=== PATIENT | male | born 1985 | race Caucasian/White ===

== ENCOUNTER 2016-10-25 23:09 | Emergency (ER) | payer OTHER ==
--- NOTE | 2016-10-25 23:15 | EDPHY ---
H & P HPI/ROS: HPI CHIEF COMPLAINT: Alcohol Intoxication HISTORY OF PRESENT ILLNESS: This patient 31-year-old male, presents to the emergency room by EMS highly intoxicated with alcohol. Please found him walking down the street, the make contact with him he appeared very intoxicated , EMS arrived and evaluated placed in a cervical collar as he has hematoma to his right forehead. Patient is unsure exactly what happened. Upon arrival here he is unable to give any history and is not able to participate well in history or review of systems. He is slurring his speech smells of alcohol highly intoxicated. He does tell me he drank multiple beers tonight. Past Medical History: Unknown Past Surgical History: Unknown Social History: Drinks alcohol, otherwise unknown at this time Family History: Unknown ROS REVIEW OF SYSTEMS: Limited due to alcohol intoxication Exam Constitutional Intoxicated, triage nursing summary reviewed, vital signs reviewed, Sleepy, smells of alcohol Eyes normal conjunctivae and sclera, horizontal beating nystagmus consistent acute alcohol intoxication, otherwise pupils equal and react to light HENT head/neck: right forehead hematoma, in rigid cervical collar, no midline cervical spine pain, no step-offs, moist mucus membranes, no epistaxis, neck supple/ no meningismus, no raccoon eyes. Respiratory clear to auscultation bilaterally, normal breath sounds, no respiratory distress, no wheezing. Cardiovascular rate normal, regular rhythm, no murmur, no edema, distal pulses normal. Gastrointestinal soft, non-tender, no rebound, no guarding, normal bowel sounds, no distension, no pulsatile mass. Genitourinary no CVA tenderness. Musculoskeletal no midline vertebral tenderness, full range of motion, no calf swelling, no tenderness of extremities, no meningismus, good pulses, neurovascularly intact. Skin pink, warm, & dry, no rash, skin atraumatic. Neurologic sleepy, intoxicated with alcohol, alert and oriented x 3, AAOx3, moves all 4 extremities equally, motor intact, sensory intact, CN II-XII intact , , normal vision, normal speech. Psychiatric intoxicated with alcohol Heme/Lymph/Immune no lymphadenopathy. Differential Diagnosis: Includes but is not limited to in a particular order acute alcohol intoxication, alcohol abuse, dehydration, electrolyte abnormality , nausea vomiting from acute alcohol intoxication Medical Decision Making: this patient is highly intoxicated with alcohol plan for him will have a breath alcohol, he will need a CT scan of his head and neck due to trauma and being highly intoxicated alcohol. Does have forehead hematoma indicating that he had head strike prior to arrival unclear exactly what happened to him. History is limited due to patient's intoxication. Re-evaluation: CT scan of the head without IV contrast. The results of the study are negative for acute traumatic injury. The study was read by Dr. Marc I viewed the images myself on the PACS system. CT scan of the cervical spine without IV contrast The results of the study are negative for acute traumatic injury The study was read by Dr. Marc. I viewed the images myself on the PACS system.. 1230AM: Patient is medically cleared at this time. Patient is on a [facility] hold. Patient ambulated well with a steady gait will go with police to [facility]. Was able to clear his cervical collar is he has no midline cervical spine pain, and a negative CT scan cervical spine. Negative CT scan head. Patient is acting much more appropriate. Stable gait safe for discharge to the [facility]. Source: Patient, EMS Exam Limitations: Intoxication - Personal History Tetanus Vaccine Date: 2008 - Medical/Surgical History Hx Asthma: No Hx Chronic Respiratory Disease: No Hx Diabetes: No Hx Cardiac Disease: No Hx Renal Disease: Yes Hx Cirrhosis: No Hx Alcoholism: No Hx HIV/AIDS: No Hx Splenectomy or Spleen Trauma: No Other PMH: bipolar-no meds, kidney stones. - Social History Smoking Status: Never smoked Constitutional: Initial Vital Signs Temperature (C) 36.9 C 10/25/16 23:32 Heart Rate 102 H 10/25/16 23:32 Respiratory Rate 18 10/25/16 23:32 Blood Pressure 160/85 H 10/25/16 23:32 O2 Sat (%) 95 10/25/16 23:32 O2 Delivery Mode Nasal Cannula O2 (L/minute) 2 Allergies/Adverse Reactions: No Known Allergies Allergy (Verified 11/10/15 20:01) Home Medications: Medication Instructions Recorded NK [No Known Home Meds] 11/10/15 Departure - Departure Disposition: Home, Routine, Self-Care Clinical Impression: Alcohol intoxication Qualifiers: Complication of substance-induced condition: uncomplicated Qualified Code(s): F10.120 - Alcohol abuse with intoxication, uncomplicated Condition: Good Instructions: Alcohol Intoxication (ED), Hematoma (ED), Contusion in Adults (ED ) Referrals: Patient,NotPresent [Unknown] - As per Instructions
[2016-10-25 23:34] VITALS: RESP 18; TEMP 98.4
[2016-10-26 00:40] VITALS: BP 145/73; PULSE 87; O2SAT 93
== END 2016-10-26 00:40 | disposition home or self-care (01) ==
LOC: EDUNIT#
DX: F10.120 Alcohol abuse with intoxication, uncomplicated (principal)

== ENCOUNTER 2017-01-19 17:40 | Emergency (ER) | payer OTHER ==
[2017-01-19 17:55] VITALS: RESP 16; TEMP 97.9
--- NOTE | 2017-01-19 18:15 | EDPHY ---
H & P Stated Complaint: L elbow redness x 2 wks-at area insect bites in [facility] Time Seen by Provider: 01/19/17 17:58 HPI/ROS: CHIEF COMPLAINT: Left elbow pain HISTORY OF PRESENT ILLNESS: And swelling patient is a 31-year-old man who comes to the emergency department complaining of 2 weeks left elbow swelling, mild erythema and pain. Normal range of motion. He states that he 1st noticed it when he was in [facility] surfing. He is not sure if he was bitten by an insect or not. He has not had a fever. No vomiting. No diarrhea. No paresthesias or weakness. REVIEW OF SYSTEMS: Constitutional: denies: chills, fever, recent illness, recent injury EENTM: denies: blurred vision, double vision, nose congestion Respiratory: denies: cough, shortness of breath Cardiac: denies: chest pain, irregular heart rate, lightheadedness, palpitations Gastrointestinal/Abdominal: denies: abdominal pain, diarrhea, nausea, vomiting, blood streaked stools Genitourinary: denies: dysuria, frequency, hematuria, pain Musculoskeletal: See HPI Skin: denies: lesions, rash, jaundice, bruising Neurological: denies: headache, numbness, paresthesia, tingling, dizziness, weakness Hematologic/Lymphatic: denies: blood clots, easy bleeding, easy bruising Immunologic/allergic: denies: HIV/AIDS, transplant EXAM: GENERAL: Well-appearing, well-nourished and in no acute distress. HEAD: Atraumatic, normocephalic. EYES: Pupils equal round and reactive to light, extraocular movements intact, sclera anicteric, conjunctiva are normal. ENT: TMs normal, nares patent, oropharynx clear without exudates. Moist mucous membranes. NECK: Normal range of motion, supple without lymphadenopathy or JVD. LUNGS: Breath sounds clear to auscultation bilaterally and equal. No wheezes rales or rhonchi. HEART: Regular rate and rhythm without murmurs, rubs or gallops. ABDOMEN: Soft, nontender, normoactive bowel sounds. No guarding, no rebound. No masses appreciated. BACK: No CVA tenderness, no spinal tenderness, step-offs or deformities EXTREMITIES: Left elbow with firm the low over the the epicondyle. NEUROLOGICAL: Cranial nerves II through XII grossly intact. Normal speech, normal gait. 5/5 strength, normal movement in all extremities, normal sensation PSYCH: Normal mood, normal affect. SKIN: Warm, dry, normal turgor, no visible rashes or lesions. Source: Patient Exam Limitations: No limitations - Personal History Current Tetanus/Diphtheria Vaccine: Unsure Current Tetanus Diphtheria and Acellular Pertussis (TDAP): Unsure Tetanus Vaccine Date: 2008 - Medical/Surgical History Hx Asthma: No Hx Chronic Respiratory Disease: No Hx Diabetes: No Hx Cardiac Disease: No Hx Renal Disease: No Hx Cirrhosis: No Hx Alcoholism: No Hx HIV/AIDS: No Hx Splenectomy or Spleen Trauma: No Other PMH: bipolar-no meds, kidney stones. - Family History Significant Family History: No pertinent family hx - Social History Smoking Status: Never smoked Alcohol Use: Sober Drug Use: None Constitutional: Initial Vital Signs Temperature (C) 36.6 C 01/19/17 17:51 Heart Rate 79 01/19/17 17:51 Respiratory Rate 16 01/19/17 17:51 Blood Pressure 148/95 H 01/19/17 17:51 O2 Sat (%) 95 01/19/17 17:51 O2 Delivery Mode Room Air Allergies/Adverse Reactions: azithromycin Allergy (Verified 01/19/17 17:51) Home Medications: Medication Instructions Recorded Sulfamethox/Tmp 800/160 mg 1 tab PO BID #14 tab 01/19/17 [Bactrim Ds] Medical Decision Making - Diagnostics Imaging Results: Imaging Impressions Elbow X-Ray 01/19/17 18:13 Impression: 1. Olecranon bursitis versus subcutaneous hematoma/swelling. 2. No acute fracture or effusion. Procedures: Left elbow bursa drained under sterile conditions, 1 cc of clear straw-colored fluid obtained. ED Course/Re-evaluation: The patient does not appear to have cellulitis. He appears to have a bursitis however it is very firm. X-ray is normal. Only a small amount was drained on bursa drainage. I will send for cultures. I will start him on Bactrim because of the mild erythema. He is traveling to [place] in a couple of weeks. Differential Diagnosis: Partial list of the Differential diagnosis considered include but were not limited to; bursitis, cellulitis and although unlikely based on the history and physical exam, I also considered septic joint , gout, arthritis. I discussed these differential diagnoses and the plan with the patient as well as the usual and expected course. The patient understands that the diagnosis is provisional and that in medicine we are not always correct and that further workup is often warranted. Usual and customary warnings were given. All of the patient's questions were answered. The patient was instructed to return to the emergency department should the symptoms at all worsen or return, otherwise to followup with the physician as we discussed. - Data Points Laboratory Results: 01/19/17 19:32 Fl Pathologist Review Pending Synovial Source SYNOVIAL Synovial Color RED (CLS/PALE YL) Synovial Appearance CLOUDY H (CLEAR) Synovial WBC 2259 /mm3 H /mm3 (0-150) Synovial RBC 750528 /mm3 H /mm3 (0-0) Synovial Neutrophils 80 % H % (0-25) Synovial Lymphocytes 7 % % Synov Monos/Macrophage 13 % % Medications Given: Discontinued Medications Trimethoprim/Sulfamethoxazole (Bactrim Ds) 1 ea PO EDNOW ONE PRN Reason: Protocol Stop: 01/19/17 19:34 Last Admin: 01/19/17 19:41 Dose: 1 ea Departure - Departure Disposition: Home, Routine, Self-Care Clinical Impression: Bursitis Qualifiers: Bursitis location: elbow Elbow bursitis location: olecranon bursitis Laterality : left Qualified Code(s): M70.22 - Olecranon bursitis, left elbow Condition: Fair Instructions: Elbow Bursitis (ED) Referrals: Sabrina Tamayo, [employer] [Primary Care Provider] - As per Instructions Prescriptions: Sulfamethox/Tmp 800/160 mg [Bactrim Ds] 1 tab PO BID #14 tab
[2017-01-19] MEDS ORDERED: SULFAMETHOX/TMP 800/160 MG 1 TAB PO ONE (19:33)
[2017-01-19 19:52] VITALS: BP 144/75; PULSE 66; O2SAT 94
[2017-01-19 20:25] LABS: WBC, SYNOVIAL FLUID 2259 /mm3 (0-150)
== END 2017-01-19 19:51 | disposition home or self-care (01) ==
PROC: 0M943ZZ Drainage of Left Elbow Bursa and Ligament, Percutaneous Approach (ICD-10-PCS; principal; 2017-01-19)
DX: M70.22 Olecranon bursitis, left elbow (principal)

== ENCOUNTER 2017-06-29 06:59 | Day surgery (SDC) | payer MEDICAID ==
[2017-06-29] MEDS ORDERED: BUPIVACAINE 0.25% 30 ML SDV ONE ×2 (07:08→11:00)
[2017-06-29] MEDS ORDERED: BACITRACIN 50,000 UNITS/10 ML SYR IRR ONE (07:08)
[2017-06-29] MEDS ORDERED: POLYMYXIN B SULFATE 500,000 UNIT/10 ML SYR IRR ONE (07:08)
[2017-06-29] MEDS ORDERED: ceFAZolin 2 GM/SWFI 2 GM/20 ML SYR IVP ONE (07:37)
[2017-06-29] MEDS ORDERED: LR 1,000 ML IV ONE (07:38)
[2017-06-29] MEDS ORDERED: LIDOCAINE 1% 2 ML INJ ID PRN (07:38)
--- NOTE | 2017-06-29 08:36 | PDANEPAE ---
ANE History of Present Illness Non-union radius fracture ANE Past Medical History - Cardiovascular History Hx Hypertension: No Hx Arrhythmias: No Hx Chest Pain: No Hx Coronary Artery / Peripheral Vascular Disease: No Hx CHF / Valvular Disease: No Hx Palpitations: No Cardiovascular History Comment: POSS MILD MURMUR - NO DX - Pulmonary History Hx COPD: No Hx Asthma/Reactive Airway Disease: No Hx Recent Upper Respiratory Infection: No Hx Oxygen in Use at Home: No Hx Sleep Apnea: No Sleep Apnea Screening Result - Last Documented: Positive - Neurologic History Hx Cerebrovascular Accident: No Hx Seizures: No Hx Dementia: No - Endocrine History Hx Diabetes: No - Renal History Hx Renal Disorders: Yes Renal History Comment: KIDNEY STONES YRS AGO - Liver History Hx Hepatic Disorders: No - Neurological & Psychiatric Hx Hx Neurological and Psychiatric Disorders: No Neurological / Psychiatric History Comment: BIPOLAR - Cancer History Hx Cancer: No - Congenital Disorder History Hx Congenital Disorders: No - GI History Hx Gastrointestinal Disorders: No - Other Health History Other Health History: NEG - Chronic Pain History Chronic Pain: Yes (R HIP & LOWER BACK) - Surgical History Prior Surgeries: L RADIUS REPAIR. APPENDECTOMY ANE Review of Systems Review of Systems: - Exercise capacity METS (RN): 4 METS ANE Patient History - Allergies Allergies/Adverse Reactions: azithromycin Allergy (Verified 06/24/17 14:58) UNK - Home Medications Home medications: home medication list seen and reviewed Home Medications: Herbals/Supplements -Info Only 06/24/17 [Last Taken 06/26/17] - NPO status NPO Since - Liquids (Date): 06/28/17 NPO Since - Liquids (Time): 06:00 NPO Since - Solids (Date): 06/28/17 NPO Since - Solids (Time): 23:55 - Smoking Hx Smoking Status: Never smoked - Family Anes Hx Family Hx Anesthesia Complications: NEG ANE Labs/Vital Signs - Vital Signs Blood Pressure: 136/90 Heart Rate: 77 Respiratory Rate: 16 O2 Sat (%): 93 Height: 185.42 cm Weight: 106.594 kg ANE Physical Exam - Airway Neck exam: FROM Mallampati Score: Class 1 Mouth exam: normal dental/mouth exam - Pulmonary Pulmonary: no respiratory distress - Cardiovascular Cardiovascular: regular rate and rhythym - ASA Status ASA Status: I ANE Anesthesia Plan Anesthesia Plan: GA w LMA
--- NOTE | 2017-06-29 08:39 | PDHPUP ---
History & Physical Update H&P update statement: This history and physical update is based on an assessment of the patient which was completed after admission or registration (within 24 hours), but prior to the surgery/procedure. H&P update: H&P reviewed & patient examined, no change in patient's condition since H&P completed
[2017-06-29] MEDS ORDERED: MIDAZOLAM 2 MG/2 ML VIAL IVP ONE (08:41)
[2017-06-29] MEDS ORDERED: MIDAZOLAM 2 MG/2 ML VIAL ONE (08:44)
[2017-06-29] MEDS ORDERED: fentaNYL 100 MCG/2 ML INJ ONE ×3 (08:46→10:59)
[2017-06-29] MEDS ORDERED: PROPOFOL 200 MG/20 ML VIAL ONE ×2 (08:46→09:03)
[2017-06-29] MEDS ORDERED: LIDOCAINE 2% 5 ML SDV ONE (08:48)
[2017-06-29] MEDS ORDERED: METOCLOPRAMIDE 10 MG/2 ML VIAL ONE (08:49)
[2017-06-29] MEDS ORDERED: ONDANSETRON 4 MG/2 ML VIAL ONE (09:53)
[2017-06-29] MEDS ORDERED: DEXAMETHASONE 4 MG/ML VIAL ONE (09:53)
[2017-06-29] MEDS ORDERED: ONDANSETRON 4 MG/2 ML VIAL IVP PRN (09:57)
[2017-06-29] MEDS ORDERED: PROMETHAZINE HCL 25 MG/ML INJ IVP PRN (09:57)
[2017-06-29] MEDS ORDERED: NALOXONE HCL 0.4 MG/ML INJ IVP PRN (09:57)
[2017-06-29] MEDS ORDERED: HYDROmorphONE/DILAUDID 1 MG/ML INJ IVP PRN (09:57)
--- NOTE | 2017-06-29 11:16 | POSTANESTH ---
Post Anesthetic Evaluation Cardiovascular Status: Normal, Stable Respiratory Status: Normal, Stable Level of Consciousness/Mental Status: Can Participate in Eval Pain Control: Adequate, Prn Tx Ordered Nausea/Vomiting Control: Adequate, Prn Tx Ordered Complications Possibly Related to Anesthesia: None Noted
--- NOTE | 2017-06-29 11:28 | POSTOPPROG ---
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
[2017-06-29] MEDS: fentaNYL 100 MCG/2 ML INJ IVP PRN ×2 (11:55→12:04)
[2017-06-29 12:31] VITALS: RESP 17; O2SAT 92
[2017-06-29] MEDS ORDERED: OXYCODONE/APAP 5/325 TAB PO PRN (12:33)
[2017-06-29] MEDS ORDERED: OXYCODONE/APAP 5/325 TAB PO ONE (12:45)
[2017-06-29 12:51] VITALS: BP 126/75; PULSE 99; TEMP 97.5
--- NOTE | 2017-06-29 21:03 | GOP ---
[f rep st] OPERATIVE REPORT DATE OF OPERATION: 06/29/2017 SURGEON: Goyo Puckett MD PREOPERATIVE DIAGNOSIS: Established left forearm radius shaft nonunion. POSTOPERATIVE DIAGNOSIS: Established left forearm radius shaft nonunion. PROCEDURE PERFORMED: Takedown nonunion with repair using compression plate and screws plus iliac cre st bone grafting. FINDINGS: The old bent plate was removed. The fracture site was freshened. Iliac bone graft was ap plied between the fracture fragments and then circumferentially around the nonunion site, and a new 3 .5 mm DCP plate was used for internal fixation. DESCRIPTION OF PROCEDURE: After routinely checking the patient's identification consent and the succ essful induction of LMA and general anesthetic, the patient's left anterior hip area as well as left arm were prepped and draped in usual standard fashion. A surgical time-out was completed. The previ ous incision was utilized for access. This was a volar Anibal's incision to the radial shaft. I reeder ied this sharply through the skin, excising his previous skin incision, which had spread significantl y and was hypertrophic. I dissected through the subcutaneous layer, which was densely scarred to the musculature. I developed the interval along the brachial radialis and then carried this deeply, sep arating the FDS muscles which were densely scarred from the radial shaft. I exposed the plate and re moved the plate. There was significant bony overgrowth proximally that had to be chipped away. Once the screws were removed, I the plate from the bone. I used a series of rongeur and curett e to flatten the bone surface where there was bony overgrowth. I then manipulated this and opened th e fracture site. I stripped the periosteum exclusively just at the fracture site as necessary. Once this was completed, I used a 3.2 mm drill to create an osseous tunnel in the intramedullary space. I mated the surface together, and then fit an 8 hole 3.5 mm DC plate to the bone and felt that this s atisfactorily would hold the bone straight and I was able to fit this using screw trajectories that w ere not coincident with the previous screws that were removed. I now made an oblique incision over the left anterior iliac crest. I carried this sharply through th e skin and then bluntly through the subcutaneous layer. I dissected down to the iliac crest with a h ot knife, leaving full-thickness layers of tissue. I exposed the outer table and then made a trapdoo r incision, removing the outer table. I cut the cortical bone into matchstick size strips, leaving a small amount of cancellous bone attached to this. I then used a curette to harvest cancellous iliac crest graft. I irrigated this wound and placed Gelfoam in the defect and a saline-soaked gauze to co lila this. The bone graft was packed into the ends of the radial shaft. I then buttered the ends of the bone and reduced this and affixed the plate using compression plating technique. Two nonlocking screws were placed immediately adjacent to the fracture site and the remaining 6 holes were filled wi th locking screws. The bone graft was then packed around the area of the nonunion, and then I took t he match sticks and sewed these circumferentially around the radial shaft. This wound was irrigated. I allowed the musculature to resume its normal position. I checked the form with the FluoroScan un it and found the hardware to be appropriately positioned. Forearm rotation was normal at this point, where it was reduced in full supination preoperatively due to the bowed deformity of his radial shaf t and the incongruity of the distal radioulnar joint. Satisfied with this, I closed the subcutaneous layer with a combination of 2-0 and 4-0 Vicryl and the skin with subcuticular 4-0 Monocryl followed by Steri-Strips. Additional 0.25% Marcaine plus epinephrine were infiltrated around the wound for po stoperative comfort and assistance in hemostasis. I closed the iliac crest bone graft donor site in layers. This involved closure of the deep fascia with 0 Vicryl suture, the superficial fascia with 2 -0 Vicryl suture, the subcutaneous layer with 4-0 Vicryl suture and the skin with subcuticular 4-0 Mo nocryl followed by Dermabond. The tourniquet was deflated simultaneous with application of a sterile bulky dressing on the left forearm and a volar plaster splint. He was transferred to the [facility] in excellent condition. He tolerated the procedure well. There were no complications. INDICATIONS FOR SURGERY: The patient is a 31-year-old gentleman who sustained the original injury ap proximately 6 months ago. This has unfortunately gone onto a nonunion and he has bent the indwelling plate from his prior surgery. He is brought to the operating room for definitive surgical managemen t. /[id number]/MODL
== END 2017-06-29 13:36 | disposition home or self-care (01) ==
LOC: FSGY 06:59
PROVIDERS: ATTEND Orthopaedic Surgery Hand Surgery
PROC: 0PR Upper Bones, Replacement (ICD-10-PCS; principal; 2017-06-29 09:00)
PROC: 0PQ Upper Bones, Repair (ICD-10-PCS; principal; 2017-06-29 09:00)
DX: S52.302 Unspecified fracture of shaft of left radius (principal); V18.0XXA Pedal cycle driver injured in noncollision transport accident in nontraffic accident, initial encounter
CPT/HCPCS: C1713; J0171; J0690; J1100; J2250; J2405; J2704; J2765; J3010